=== PATIENT | male | born 1935 | race Caucasian/White ===

== ENCOUNTER 2017-06-18 15:13 | Emergency (ER) | payer OTHER, MEDICARE ==
[~2017-06-18] VITALS: Ht 185.4 cm; Wt 91.0 kg
[~2017-06-18 15:13] MED LIST: COUM5TAB PO; WARF2.5T40 PO; ZOCO40TA PO
[2017-06-18 15:22] VITALS: BP 140/68; PULSE 72; RESP 16; TEMP 98.2; O2SAT 97
--- NOTE | 2017-06-18 16:31 | PD ---
HPI Chief Complaint: Complaint Time Seen by Provider: 15:27 Travel History International Travel<30 days: No Contact w/Intl Traveler<30days: No Traveled to known affect area: No History of Present Illness HPI 82-year-old male that presents to the ED for evaluation of problems with urination. Per patient has been having problems with urination for the past 2 days. Per patient is been going to pee a lot and feels like he is not emptying his bladder and off. Patient has a significant history of leukemia and gets chemotherapy last time being last week. Per patient he got it Friday through Friday and gets a couple weeks of rest. Follows with Dr. Oleary. Per patient the symptoms started since yesterday. He has never had a reaction like this before. He has had chemotherapy for the past 12 weeks. States that he has no bowel movement issues. No weakness. No chest pain. No flank pain. Urine itself esparza and for the most part when he has to pee only a limited amount of it comes out. But not all the time. He does change in the amount. Denies any fevers chills or sweats. No cough or runny nose. Has no allergies to medication. No other medical issues. PFSH Past Medical History Hx Anticoagulant Therapy: Yes Diminished Hearing: No Deep Vein Thrombosis: Yes ?: Not Social History Alcohol Use: No Tobacco Use: No Substance Use: No Allergies-Medications (Allergen,Severity, Reaction): Coded Allergies: No Known Allergies (Verified , 03/03/12) Reported Meds & Prescriptions Reported Meds & Active Scripts Active Cipro (Ciprofloxacin HCl) 500 Mg Tab 500 Mg PO BID 10 Days Reported Acyclovir 200 Mg Cap Mg PO Diflucan (Fluconazole) 50 Mg Tab Mg PO DAILY Cipro (Ciprofloxacin HCl) 500 Mg Tab 500 Mg PO EVERY OTHER DAY Bactrim DS (Sulfamethoxazole-Trimethoprim) 800-160 Mg Tab 1 Tab PO EVERY OTHER DAY Vitamin C ER (Ascorbic Acid) 500 Mg Da 500 Mg PO Vitamin D3 (Cholecalciferol) 1,000 Unit Tab 1,000 Units PO DAILY Warfarin 5 Mg Tab 5 Mg PO DAILY Tamsulosin (Tamsulosin HCl) 0.4 Mg Cap 0.4 Mg HS Simvastatin 80 Mg Tab 80 Mg PO DAILY Zofran Odt (Ondansetron Odt) 4 Mg Tab 4 Mg SL Q6HR PRN Fish Oil ([place]verne-3 Fatty Acids) 60 Mg-90 Mg-500 Mg Cap Mg PO DAILY B12 (Cyanocobalamin) 1,000 Mcg Tab 250 Mcg PO DAILY Review of Systems Except as stated in HPI: all other systems reviewed are Neg Physical Exam Narrative GENERAL: SKIN: Warm and dry. HEAD: Atraumatic. Normocephalic. EYES: Pupils equal and round. No scleral icterus. No injection or drainage. ENT: No nasal bleeding or discharge. Mucous membranes pink and moist. Tongue is midline. No uvula deviation. NECK: Trachea midline. No JVD. CARDIOVASCULAR: Regular rate and rhythm. No murmurs, S3, S4. RESPIRATORY: No accessory muscle use. Clear to auscultation. Breath sounds equal bilaterally. GASTROINTESTINAL: Abdomen soft, non-tender, nondistended. Hepatic and splenic margins not palpable. MUSCULOSKELETAL: Extremities without clubbing, cyanosis, or edema. No obvious deformities. Full range of motion of the upper and lower extremities bilaterally. 2+ pulses bilaterally. NEUROLOGICAL: Awake and alert. No obvious cranial nerve deficits. Motor grossly within normal limits. Five out of 5 muscle strength in the arms and legs. Normal speech. PSYCHIATRIC: Appropriate mood and affect; insight and judgment normal. Data Data Last Documented VS Vital Signs Date Time Temp Pulse Resp B/P (MAP) Pulse Ox O2 Delivery O2 Flow Rate FiO2 06/18/17 19:30 70 20 126/67 (86) 97 Room Air 06/18/17 15:22 98.2 Orders Orders Complete Blood Count With Diff (06/18/17 15:41) Comprehensive Metabolic Panel (06/18/17 15:41) Urinalysis - C+S If Indicated (06/18/17 15:41) Magnesium (Mg) (06/18/17 15:41) Iv Access Insert/Monitor (06/18/17 15:41) Sodium Chlor 0.9% 1000 Ml Inj (Ns 1000 M (06/18/17 17:15) Ed Poc Ultrasound (06/18/17 ) Urinary Catheter Insert/Apply (06/18/17 18:11) Lidocaine 2% Jelly (Xylocaine 2% Jelly) (06/18/17 18:30) Morphine Inj (Morphine Inj) (06/18/17 20:23) Ed Discharge Order (06/18/17 21:23) Heparin Central Flush (Heparin Central F (06/18/17 22:00) Labs Laboratory Tests Test 06/18/17 16:00 White Blood Count 1.7 TH/MM3 Red Blood Count 2.35 MIL/MM3 Hemoglobin 7.9 GM/DL Hematocrit 24.0 % Mean Corpuscular Volume 102.2 FL Mean Corpuscular Hemoglobin 33.8 PG Mean Corpuscular Hemoglobin Concent 33.1 % Red Cell Distribution Width 21.4 % Platelet Count 133 TH/MM3 Mean Platelet Volume 7.6 FL Neutrophils (%) (Auto) 44.3 % Lymphocytes (%) (Auto) 49.2 % Monocytes (%) (Auto) 4.7 % Eosinophils (%) (Auto) 0.9 % Basophils (%) (Auto) 0.9 % Neutrophils # (Auto) 0.8 TH/MM3 Lymphocytes # (Auto) 0.8 TH/MM3 Monocytes # (Auto) 0.1 TH/MM3 Eosinophils # (Auto) 0.0 TH/MM3 Basophils # (Auto) 0.0 TH/MM3 CBC Comment AUTO DIFF Differential Total Cells Counted 100 Neutrophils % (Manual) 35 % Band Neutrophils % 3 % Lymphocytes % 54 % Monocytes % 2 % Eosinophils % 2 % Basophils % 4 % Neutrophils # (Manual) 0.6 TH/MM3 Nucleated Red Blood Cells 1 /100 WBC Differential Comment FINAL DIFF MANUAL Toxic Granulation Dohle Bodies Platelet Estimate LOW Platelet Morphology Comment NORMAL Tear Drop Cells 1+ Urine Color YELLOW Urine Turbidity CLEAR Urine pH 6.0 Urine Specific [place] 1.014 Urine Protein NEG mg/dL Urine Glucose (UA) NEG mg/dL Urine Ketones NEG mg/dL Urine Occult Blood NEG Urine Nitrite NEG Urine Bilirubin NEG Urine Urobilinogen LESS THAN 2.0 MG/DL Urine Leukocyte Esterase NEG Urine RBC 4 /hpf Urine WBC 4 /hpf Urine Squamous Epithelial Cells <1 /hpf Urine Bacteria RARE /hpf Microscopic Urinalysis Comment CULT NOT INDICATED Blood Urea Nitrogen 29 MG/DL Creatinine 1.09 MG/DL Random Glucose 99 MG/DL Total Protein 6.9 GM/DL Albumin 3.3 GM/DL Calcium Level 8.4 MG/DL Magnesium Level 2.3 MG/DL Alkaline Phosphatase 79 U/L Aspartate Amino Transf (AST/SGOT) 12 U/L Alanine Aminotransferase (ALT/SGPT) 16 U/L Total Bilirubin 0.4 MG/DL Sodium Level 140 MEQ/L Potassium Level 3.8 MEQ/L Chloride Level 105 MEQ/L Carbon Dioxide Level 29.4 MEQ/L Anion Gap 6 MEQ/L Estimat Glomerular Filtration Rate 65 ML/MIN MDM Medical Decision Making Medical Screen Exam Complete: Yes Emergency Medical Condition: Yes Medical Record Reviewed: Yes Interpretation(s) CBC & BMP Diagram 06/18/17 16:00 Total Protein 6.9, Albumin 3.3 L, Calcium Level 8.4 L, Magnesium Level 2.3, Alkaline Phosphatase 79, Aspartate Amino Transf (AST/SGOT) 12 L, Alanine Aminotransferase (ALT/SGPT) 16, Total Bilirubin 0.4 UA shows some blood Differential Diagnosis UTI versus urinary retention versus dehydration versus kidney failure versus urethritis Narrative Course 82-year-old male that presents to the ED for evaluation of urinary issues. Patient was properly examined and was found to have signs and symptoms consistent appears to be possibly a retention versus infection. Labs ordered. Bladder scan was done and showed no sign of acute disease alert and about 1000 mL of fluid on the bladder. Chacon was attempted by ED nurse and my attending Dr. Salinas. Unfortunately were not able to get it. It appears to be obstructed and patient had some bleeding from the trials. Dr. Verdin was contacted and placed a Chacon himself. He was successful and about 1800 mL of urine were obtained. Dr. Verdin once the Chacon to be in place for at least 10 days. Patient feels much improved. At this time recommendation is for follow-up outpatient with Dr. Verdin and the patient's oncologist. Patient understands this. Patient says he needs to call tomorrow to see his oncologist. Patient was told that if anything worsens she is to come back. Was able to speak with Dr. Sotelos was cotton classer for Dr. Oleary and agrees the patient should be started on Cipro to cover for bacterial infection of the urine secondary to having the Chacon in place and having leukemia and chemotherapy. Patient was given a prescription for this. Patient understands reasons to come back. Patient was taught on how to change the back for the urine. Close follow-up with PCP. See ED if worsening symptoms. Diagnosis Primary Impression: Acute urinary retention Referrals: Chito Verdin DO Patient Instructions: General Instructions Additional Instructions: Follow with urologist. See ED if worsening symptoms. Take medications as prescribed. Follow with Dr. Oleary. Keep Chacon in place until seen by urologist. Med/Other Pt SpecificInfo: Prescription(s) given Scripts Ciprofloxacin (Cipro) 500 Mg Tab 500 MG PO BID for Infection for 10 Days, #20 TAB 0 Refills Prov: Edwin Salinas MD 06/18/17 Disposition: 01 DISCHARGE HOME Condition: David Jean Baptiste June 18, 2017 16:31
[2017-06-18 16:44] LABS: AUTOMATED NEUTROPHIL # 0.8 TH/MM3 (1.8-7.7); BASOPHIL % 0.9 % (0.0-2.0); EOSINOPHIL % 0.9 % (0.0-4.0); HEMOGLOBIN 7.9 GM/DL (13.0-17.0); LYMPH % 49.2 % (9.0-44.0); LYMPHOCYTE # 0.8 TH/MM3 (1.0-4.8); MEAN CELL VOLUME 102.2 FL (80.0-100.0); MEAN CORPUSCULAR HEMOGLOBIN 33.8 PG (27.0-34.0); MEAN CORPUSCULAR HGB CONC 33.1 % (32.0-36.0); MEAN PLATELET VOLUME 7.6 FL (7.0-11.0); MONO % 4.7 % (0.0-8.0); MONOCYTE # 0.1 TH/MM3 (0-0.9); NEUT % 44.3 % (16.0-70.0); PLATELET COUNT 133 TH/MM3 (150-450); RED BLOOD COUNT 2.35 MIL/MM3 (4.50-5.90); RED CELL DISTRIBUTION WIDTH 21.4 % (11.6-17.2); WHITE BLOOD COUNT 1.7 TH/MM3 (4.0-11.0)
[2017-06-18 17:01] LABS: BACTERIA, URINE RARE /hpf; BILIRUBIN, URINE NEG (NEG); BLOOD, URINE NEG (NEG); GLUCOSE,URINE NEG (NEG); KETONE, URINE NEG (NEG); NITRITE,URINE NEG (NEG); SQUAMOUS EPITHELIAL CELL URINE <1 /hpf (0-5); URINE COLOR YELLOW (YELLW/STRAW); URINE LEUKOCYTE ESTERASE NEG (NEG)
[2017-06-18 17:03] LABS: ALBUMIN 3.3 GM/DL (3.4-5.0); ALT (GPT) 16 U/L (12-78); AST (GOT) 12 U/L (15-37); BICARBONATE 29.4 MEQ/L (21.0-32.0); BLOOD UREA NITROGEN 29 MG/DL (7-18); CALCIUM 8.4 MG/DL (8.5-10.1); CHLORIDE 105 MEQ/L (98-107); CREATININE 1.09 MG/DL (0.60-1.30); GLOMERULAR FILTRATION RATE 65 ML/MIN (>89); GLUCOSE,RANDOM 99 MG/DL (74-106); MAGNESIUM 2.3 MG/DL (1.5-2.5); SODIUM (NA) 140 MEQ/L (136-145)
[2017-06-18 17:05] LABS: ALKALINE PHOSPHATASE 79 U/L (45-117); TOTAL BILIRUBIN ADULT 0.4 MG/DL (0.2-1.0); TOTAL PROTEIN 6.9 GM/DL (6.4-8.2)
[2017-06-18] MEDS ORDERED: SODIUM CHLOR 0.9% 1000 ML INJ 1,000 ML IV ONE (17:15)
[2017-06-18 17:59] LABS: BANDS 3 % (0-6); BASOPHILS 4 % (0-2); CORRECTED NUCLEATED RBC 1 /100 WBC (0-0); LYMPHOCYTES 54 % (9-44); MONOCYTES 2 % (0-8); NEUTROPHIL # MANUAL DIFF 0.6 TH/MM3 (1.8-7.7); NUCLEATED RED BLOOD CELL 1 (0-0); POLYS (SEG NEUTROPHILS) 35 % (16-70)
[2017-06-18 18:09] LABS: TEARDROP RBCS 1+ (NORMAL)
[2017-06-18] MEDS ORDERED: CIPR-9 PO ×2 (18:18→19:35)
[2017-06-18] MEDS ORDERED: LIDOCAINE 2% JELLY 30 ML TUBE TOPICAL ONE (18:30)
[2017-06-18] MEDS ORDERED: VITA500T83 PO (19:27)
[2017-06-18] MEDS ORDERED: WARF-23 PO (19:27)
[2017-06-18] MEDS ORDERED: VITA100018 PO (19:27)
[2017-06-18] MEDS ORDERED: ZOFR4TAB3 SL (19:27)
[2017-06-18] MEDS ORDERED: TAMS0.4C4 (19:27)
[2017-06-18] MEDS ORDERED: FISH500C PO (19:27)
[2017-06-18] MEDS ORDERED: CYAN1TAB24 PO (19:27)
[2017-06-18] MEDS ORDERED: SIMV80TA PO (19:27)
[2017-06-18 19:30] VITALS: BP 126/67; PULSE 70; RESP 20; O2SAT 97
[2017-06-18] MEDS ORDERED: ACYC200C66 PO (19:35)
[2017-06-18] MEDS ORDERED: DIFL50TA PO (19:35)
[2017-06-18] MEDS ORDERED: BACT800T5 PO (19:35)
[2017-06-18] MEDS ORDERED: MORPHINE SULFATE 4 MG/ML INJ ONE (20:23)
--- NOTE | 2017-06-18 21:42 | MB ---
cc: Chito Verdin DO LambertChito DO DATE: 06/18/2017 HISTORY OF PRESENT ILLNESS: Mr. Bass is a pleasant 81-year-old male who presented to the emergency room with difficulty with urination. He has been seen by Dr. Mayberry in the past. He underwent a TURP approximately 10 years ago. He states that he is having difficulty urinating, gets up approximately 10 times at night. He was recently diagnosed with leukemia and had a port placement. He denies any chest pain or any flank pain or gross hematuria. He does note incomplete bladder emptying. 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 Leukemia. PAST SURGICAL HISTORY: Noted for a TURP. SOCIAL HISTORY: Denies drinking or using drugs. ALLERGIES: NO KNOWN DRUG ALLERGIES. FAMILY HISTORY: No family history of prostate cancer. REVIEW OF SYSTEMS: Denies chest pain, shortness of breath, some lower abdominal pain due to bladder distention with difficulty with urination, incomplete bladder emptying, nocturia x10. No skin lesions. No gait disturbances. The remaining review of systems were reviewed and were negative. PHYSICAL EXAMINATION: VITAL SIGNS: Temperature 98.2, heart rate 70, respiratory rate 20, 126/67, 97% on room air. GENERAL: Well-developed, well-nourished, 82-year-old male in no acute distress. HEENT: Normocephalic, atraumatic. Pupils equal, round, regular, react to light. Extraocular movements intact. NECK: Supple. HEART: Regular rate and rhythm. LUNGS: Clear. ABDOMEN: Soft, nontender. Bladder is distended on exam. GENITOURINARY: Uncircumcised phallus. Testes are descended. EXTREMITIES: Show no cyanosis, clubbing, or edema. LABORATORY DATA: White count 1.7, hemoglobin 7.9, hematocrit 24.0, platelet count of 133. Sodium 140, potassium 3.8, chloride 105, CO2 of 29.4, BUN of 29, creatinine 1.09, glucose of 99. Urinalysis - 4 red cells, 4 white cells. Culture is not indicated. Bladder scan imaging at the bedside showed a bladder filled with more than 1 liter of urine. PROCEDURE NOTE: Attempt was made to place a Chacon catheter at the bedside. This was unsuccessful and then decision was made to perform cystoscopy with placement of a wire, followed by a Chacon catheter over wire. The patient was prepped and draped in the usual sterile fashion on the bedside. The flexible cystoscope was inserted. There was a false passage identified and then I was able to navigate into the bladder. A 0.35 sensor wire was then passed over the wire and a then a 16 [place] tip catheter slid in easily over the wire. Approximately 1 liter of fluid drained which was clear. He tolerated the procedure well. ASSESSMENT: An 82-year-old male with a history of benign prostatic hypertrophy with obstruction and urinary retention. Chacon catheter placed over a wire via cystoscopy. Recommend leaving the Chacon catheter in for at least 7-10 days. Monitor for hematuria, which may occur with bladder decompression. Irrigate as needed. We will follow. Thank you for the consult. DO CHATA Mccrary/ , 09:23 PM , 09:40 PM
== END 2017-06-18 22:45 | disposition home or self-care (01) ==
LOC: NEPE 15:13
DX: N40.1 Benign prostatic hyperplasia with lower urinary tract symptoms (principal); N13.8 Other obstructive and reflux uropathy; C95.90 Leukemia, unspecified not having achieved remission; Z79.01 Long term (current) use of anticoagulants; Z86.718 Personal history of other venous thrombosis and embolism
CPT/HCPCS: 51703; 80053; 81001; 83735; 85007; 85027; 96360; 99284; J1642; J2270; J7030

== ENCOUNTER 2018-01-22 08:22 | Observation (INO) ==
[2018-01-22] MEDS ORDERED: Chlorhexidine Gluconate 2% 1 Pack (2 Cloths) TOPICAL ONE (09:00)
[2018-01-22] MEDS ORDERED: ceFAZolin 1 GM Premix Inj 1 GM/50 ML PIGGYBACK IV.SIG SCH (09:00)
[2018-01-22] MEDS ORDERED: Metoprolol Tartrate 25 MG Tablet PO ONE (09:00)
[2018-01-22] MEDS ORDERED: Sodium Chlor 0.9% Inj 500 ML IV.CONT ONE (09:00)
[2018-01-22] MEDS ORDERED: Belladonna Alkaloid/Opium 60 MG Supp RECTAL PRN (13:38)
[2018-01-22] MEDS ORDERED: Acetaminophen 325 MG Tablet PO PRN (13:40)
[2018-01-22] MEDS ORDERED: fentaNYL Citrate Inj 100 MCG/2 ML Ampul ONE ×2 (13:46→13:47)
--- NOTE | 2018-01-22 13:51 | P.OP ---
- Preoperative Diagnosis (1) BPH (benign prostatic hyperplasia) (2) Urinary retention - Postoperative Diagnosis (1) BPH (benign prostatic hyperplasia) (2) Urinary retention Date of procedure: 01/22/18 Procedure: Cystoscopy, transurethral resection of bladder tumor greater than 5 cm, transurethral resection of the prostate Anesthesia: other (General LMA) Surgeon: Chito Verdin DO Estimated blood loss (mL): 100 Pathology: other (Bladder tumor, prostatic chips) Operation and Findings: 82-year-old male with history of BPH with obstruction with prior TURP in the past is required multiple Chacon catheter changes due to urinary retention. Decision made to bring the patient to the operating room to undergo cystoscopy with suprapubic tube. Risk and benefits were discussed preoperatively and the patient was willing to proceed. Patient brought the operating room and identified by myself as Ed Bass. He was placed in the dorsolithotomy position, prepped and draped you sterile fashion, received preprocedure antibiotics and general LMA anesthesia was administered. Flexible cystoscope was inserted into the bladder. Large coaptating prostatic lobes were identified. Wayne cystoscopy showed trabeculations throughout the bladder with small diverticulum identified. Along the right lateral wall near the dome a large bladder tumor was identified. Decision this point was made to abort placement of a suprapubic tube and perform a transurethral resection of the bladder tumor. The 24 [place] resectoscope sheath with loop cautery was used to resect the bladder tumor. The specimen was removed with the elic evacuator and was sent to pathology. Using the rollerball, the bed of the bladder tumor was then fulgurated to provide hemostasis. Once the bladder tumor was removed, bleeding was noted from the prostatic fossa. Due to the presence of a bladder tumor it was determined at this point not to place a suprapubic tube. Decision at this time was then made to perform a channel TURP. This was done with the resectoscope loop. A large volume of the prostate was resected and the chips were retained with the elic evacuator. These were sent to pathology. The rollerball was then used to fulgurate any bleeding within the prostatic channel. Hemostasis was then obtained. A 0.35 sensor wire was passed through the resectoscope sheath and into the bladder. A 22 [place] three-way Chacon catheter was then placed over the wire and into the bladder with 20 cc of sterile water placed in the balloon. The Chacon catheter was then placed on traction and CBI was connected to the port on the Chacon catheter. The patient was awoken and extubated and transferred to the recovery room in stable condition. The patient was stable throughout the entire procedure. He tolerated the procedure well.
[2018-01-22] MEDS: Sodium Chloride 0.45 % Inj 1,000 ML IV.CONT SCH (14:26)
[2018-01-22 15:03] LABS: Hematocrit 33.9 % (39.0-51.0); Hemoglobin 11.1 gm/dL (13.0-17.0); Mean Corpuscular HGB Conc 32.7 % (32.0-36.0); Mean Corpuscular Volume 97.7 fL (80.0-100.0); Mean Platelet Volume 7.7 fL (7.0-11.0); Platelet Count 38 th/mm3 (150-450); Red Blood Count 3.48 mil/mm3 (4.50-5.90); Red Cell Distribution Width 22.2 % (11.6-17.2); White Blood Count 0.7 th/mm3 (4.0-11.0)
[2018-01-22 15:24] LABS: Carbon Dioxide 27.4 meq/L (21.0-32.0); Potassium 4.7 meq/L (3.5-5.1)
[2018-01-22] MEDS ORDERED: Morphine Sulfate Inj 2 MG/ML Vial IV.PUSH PRN (15:30)
[2018-01-22] MEDS: ceFAZolin 1 GM Premix Inj 1 GM/50 ML PIGGYBACK IV.SIG SCH (19:44)
[2018-01-23] MEDS: Sodium Chloride 0.45 % Inj 1,000 ML IV.CONT SCH (02:21)
[2018-01-23] MEDS: ceFAZolin 1 GM Premix Inj 1 GM/50 ML PIGGYBACK IV.SIG SCH (04:31)
--- NOTE | 2018-01-23 08:31 | P.PNURO ---
Subjective Patient symptoms today: Pt seen and examined. Feels well. Objective Vital Signs: Vital Signs 01/22/18 09:10 01/22/18 13:39 01/22/18 13:45 Temperature 98.4 F 97.6 F Pulse Rate 61 61 57 L Respiratory Rate 20 11 L 10 L Blood Pressure 142/78 H 122/76 134/65 Pulse Oximetry 97 100 100 01/22/18 14:00 01/22/18 14:15 01/22/18 14:19 Temperature Pulse Rate 55 L 54 L Respiratory Rate 13 12 Blood Pressure 146/70 H 138/63 Pulse Oximetry 100 100 100 01/22/18 14:30 01/22/18 15:00 01/22/18 16:00 Temperature 97.8 F Pulse Rate 51 L 50 L 52 L Respiratory Rate 12 12 13 Blood Pressure 134/67 139/66 141/68 H Pulse Oximetry 100 100 100 01/22/18 16:52 01/22/18 19:44 01/22/18 20:00 Temperature 97.5 F L 97.9 F Pulse Rate 48 L 54 L Respiratory Rate 12 18 18 Blood Pressure 145/69 H 111/60 Pulse Oximetry 100 96 01/23/18 00:00 01/23/18 04:00 Temperature 98.1 F 98 F Pulse Rate 56 L 51 L Respiratory Rate 16 15 Blood Pressure 108/58 L 105/54 L Pulse Oximetry 95 95 Intake & Output 01/22/18 01/23/18 01/23/18 18:59 06:59 18:59 Intake Total 410 / 410 1100 / 1100 Output Total 255 / 255 575 / 575 Balance 155 / 155 525 / 525 Weight 88.7 kg 97.1 kg Intake: IV 50 / 50 1100 / 1100 1/2 Normal Saline Inj 1,000 ML 1000 / 1000 @ 84 mls/hr IV.CONT .[id number] [facility] Rx#:[id number] Ancef 1 GM Premix Inj 1 gm In 50 / 50 100 / 100 50 ml @ 100 mls/hr IV.SIG Q8H [facility] Rx#:[id number] Oral 360 / 360 Output: Urine Amount (Catheter) 255 / 255 575 / 575 3-way Urethral 255 / 255 575 / 575 Other: Bladder Irrigation Fluid - 3,000 Amount Instilled 3-way Urethral 3,250 Bladder Irrigation Fluid - 3,052 Amount Drained 3-way Urethral 3,250 3,825 Weight On Admission 88.7 kg Result Diagrams: 01/22/18 14:14 01/22/18 14:14 Medications and IVs: Active Medications Generic Name Dose Route Start Last Admin Trade Name Freq PRN Reason Stop Dose Admin Acetaminophen 325 mg 01/22/18 13:40 Tylenol PO Q4H PRN TEMPERATURE > 100.5 F Belladonna Alkaloids/Opium 60 mg 01/22/18 13:38 B & O Supp RECTAL Q6HR PRN ABDOMINAL PAIN/BLADDER SPASM Lactated Ringer's 1,000 mls @ 30 mls/hr 01/22/18 09:00 01/22/18 09:10 Lr 1000 Ml Inj IV.CONT 01/23/18 08:59 30 mls/hr .Q24H ONE Administration Sodium Chloride 1,000 mls @ 84 mls/hr 01/22/18 13:43 01/23/18 02:21 1/2 Normal Saline Inj IV.CONT 84 mls/hr .[id number] [facility] Administration Cefazolin Sodium/Dextrose 1 gm in 50 mls @ 100 mls/hr 01/22/18 20:00 05:01 Ancef 1 Gm Premix Inj IV.SIG 01/23/18 12:29 Infused Q8H [facility] Infusion Miscellaneous Information 0 each 01/22/18 13:40 Misc Nursing Information OTHER 01/23/18 13:39 UNSCH PRN SEE LABEL COMMENTS Morphine Sulfate 2 mg 01/22/18 15:30 Morphine Inj IV.PUSH Q4H PRN PAIN 6-10 Oxycodone/Acetaminophen 1 tab 01/22/18 13:39 01/22/18 19:14 Percocet 5/325 Mg PO 1 tab Q6H PRN Administration PAIN 1-5 Objective Remarks: Abd:soft,nt, nd Chacon with clear urine Assessment and Plan - Plan Stable s/p TURBT/TURP D/C home F/U on Friday
[2018-01-23 08:58] VITALS: BP 119/65; PULSE 70; RESP 20; TEMP 97; O2SAT 98
== END 2018-01-23 10:47 | disposition home or self-care (01) ==
LOC: HSDC 08:22 → HSDI 08:22 → N07 16:25
PROVIDERS: ADMIT Urology; ATTEND Urology